=== PATIENT | male | born 1970 | race Hispanic/Latino ===

== ENCOUNTER 2018-02-02 08:38 | Observation (INO) | payer BC, OTHER ==
[2018-02-02] MEDS ORDERED: ASPIRIN 81 MG CHEWABLE TABLET ONE (09:07)
[2018-02-02 09:32] LABS: Absolute Lymphocytes (CBC) 1.3 K/uL (0.7-4.9); Absolute Monocytes 0.4 K/uL (0.1-1.3); Absolute Neutrophil 4.7 K/uL (1.8-8.0); Basophils % 0.4 % (0-1.3); Hematocrit 41.6 % (39.6-49.0); Lymphocytes % 19.8 % (15.3-44.8); MCH 30.5 pg (27.0-35.0); MCV 89.8 fL (80-100); MPV 8.5 fL (7.6-11.3); Monocytes % 5.9 % (3.3-12.3); RBC Red Blood Cell Count 4.63 M/uL (4.33-5.43)
[2018-02-02 09:42] LABS: Bicarbonate 24 mEq/L (21-31); Glucose Level 110 mg/dL (65-120); Potassium 3.4 mEq/L (3.6-5.0); Sodium Level 137 mEq/L (135-145)
[2018-02-02 09:48] LABS: ALT/SGPT 27 IU/L (10-60); AST/SGOT 26 IU/L (10-42); Albumin 4.3 g/dL (3.2-5.5); Alkaline Phosphatase 87 IU/L (42-121); BUN Blood Urea Nitrogen 16 mg/dL (6-20); Bilirubin Direct 0.1 mg/dL (0-0.2); Bilirubin Total 0.7 mg/dL (0.3-1.2); Creatine Phosphokinase 447 IU/L (22-269); Protein, Total 7.3 g/dL (6.0-8.3)
--- NOTE | 2018-02-02 09:50 | RAD REPORT ---
EXAM DESCRIPTION: [facility] Single View02/02/2018 9:21 am CLINICAL HISTORY: Chest pain COMPARISON: none FINDINGS: The patient is rotated limiting evaluation mediastinum. The lungs appear clear of acute infiltrate. The heart is normal size IMPRESSION: No acute abnormalities displayed
[2018-02-02 09:51] LABS: CKMB Creatine Kinase MB 3.8 ng/ml (0.3-4.0)
--- NOTE | 2018-02-02 11:14 | ER ---
Nurse's Notes [facility] Name: Noel Starr Age: 47 yrs Sex: Male : 1970 Arrival Date: 02/02/2018 Time: 08:42 Bed 7 Private MD: Ochoa Mccracken R Diagnosis: Chest pain, unspecified Presentation: 02/02 08:52 Presenting complaint: Patient states: was at work and started getting midsternal chest iw pain, was not doing strenuous work at time, occurred at 0800 every 5-10 minutes, non radiating, feels like pressure, also felt his head get numb, denies n/v, denies cardiac hx. Transition of care: patient was not received from another setting of care. Onset of symptoms was February 02, 2018. Initial Sepsis Screen: Does the patient meet any 2 criteria? No. Patient's initial sepsis screen is negative. Does the patient have a suspected source of infection? No. Patient's initial sepsis screen is negative. Care prior to arrival: None. 08:52 Method Of Arrival: Ambulatory iw 08:52 Acuity: MAR 3 iw Triage Assessment: 09:06 General: Appears in no apparent distress. Behavior is appropriate for age. Pain: tw2 Complains of pain in chest. EENT: No signs and/or symptoms were reported regarding the EENT system. Neuro: Level of Consciousness is awake, alert, obeys commands, Oriented to person, place, time, situation. Cardiovascular: Reports chest pain, "that comes and goes" Heart tones S1 S2 Capillary refill < 3 seconds Patient's skin is warm and dry. Respiratory: Airway is patent Respiratory effort is even, unlabored, Respiratory pattern is regular, symmetrical, Breath sounds are clear bilaterally. GI: No signs and/or symptoms were reported involving the gastrointestinal system. : No signs and/or symptoms were reported regarding the genitourinary system. Derm: Skin is intact, is healthy with good turgor, Skin is dry, Skin temperature is warm. Musculoskeletal: Range of motion: intact in all extremities. Historical: - Allergies: 08:54 NKA; iw - Home Meds: 08:54 meloxicam oral oral [Active]; Tylenol #3 Oral [Active]; iw - PMHx: 08:54 bursitis; Hypertension; iw - PSHx: 08:54 None; iw - Immunization history:: Adult Immunizations not up to date. - Social history:: Smoking status: Patient/guardian denies using tobacco. - Family history:: not pertinent. - Hospitalizations: : No recent hospitalization is reported. Screenin:05 Abuse screen: Denies threats or abuse. Nutritional screening: No deficits noted. tw2 Tuberculosis screening: No symptoms or risk factors identified. Fall Risk None identified. Assessment: 09:07 Pain: Pain does not radiate. Pain began suddenly. tw2 09:07 Reassessment: see triage assessment. tw2 10:00 Reassessment: Patient appears in no apparent distress at this time. No changes from tw2 previously documented assessment. Patient and/or family updated on plan of care and expected duration. Pain level reassessed. Patient is alert, oriented x 3, equal unlabored respirations, skin warm/dry/pink. 10:40 Reassessment: Patient appears in no apparent distress at this time. No changes from tw2 previously documented assessment. Patient and/or family updated on plan of care and expected duration. Pain level reassessed. Patient is alert, oriented x 3, equal unlabored respirations, skin warm/dry/pink. Vital Signs: 08:54 BP 150 / 96; Pulse 82; Resp 18; Temp 98.4(TE); Pulse Ox 98% on R/A; Weight 88.9 kg; iw Height 5 ft. 4 in. (162.56 cm); Pain 7/10; 09:04 BP 137 / 86; Pulse 79; Resp 18; Pulse Ox 98% on R/A; tw2 09:59 BP 187 / 66; Pulse 71; Resp 18; Pulse Ox 100% on R/A; tw2 10:39 BP 116 / 80; Pulse 65; Resp 17; Pulse Ox 99% on R/A; tw2 11:41 BP 125 / 76; Pulse 68; Resp 18; Pulse Ox 99% on R/A; tw2 08:54 Body Mass Index 33.64 (88.90 kg, 162.56 cm) iw ED Course: 08:42 Patient arrived in ED. mr 08:42 Ochoa Mccracken MD is Private Physician. mr 08:54 Triage completed. iw 08:54 Arm band placed on. iw 08:55 Jose F Champagne MD is Attending Physician. rn 09:03 Bullock, Saniya, RN is Primary Nurse. tw2 09:05 Bed in low position. Call light in reach. Adult w/ patient. awake overnight monitor on. Pulse tw2 ox on. NIBP on. 09:06 No provider procedures requiring assistance completed. Patient maintains SpO2 tw2 saturation greater than 95% on room air. 09:12 Inserted saline lock: 18 gauge in right antecubital area, using aseptic technique. hb Blood collected. 09:18 X-ray completed. Portable x-ray completed in exam room. Patient tolerated procedure sw well. 09:19 XRAY Chest (1 view) In Process Unspecified. EDMS 10:39 EKG done, by ED staff, reviewed by Jose F Champagne MD. [facility] 11:14 Ochoa Mccracken MD is Hospitalizing Provider. rn 11:59 Patient admitted, IV remains in place. tw2 Administered Medications: 09:15 Drug: Aspirin Chewable Tablet 324 mg Route: PO; hb 12:03 Follow up: Response: No adverse reaction tw2 Outcome: 11:14 Decision to Hospitalize by Provider. rn 11:59 Admitted to Med/surg accompanied by tech, via wheelchair, room 415, with chart, Report tw2 called to CONTRERAS Thomas 11:59 Condition: stable 11:59 Instructed on the need for admit. 12:24 Patient left the ED. tw2 Signatures: Dispatcher [employer] EDDC Jennifer Moreno Irene, RN Jose F Cloud MD MD rn Warren, Shannon sw Baxter, Heather, RN RN hb Wise, Tara, RN RN tw2 Martinez, Maria [facility]
--- NOTE | 2018-02-02 11:15 | EDPHYS ---
Physician Documentation [facility] Name: Noel Starr Age: 47 yrs Sex: Male : 1970 Arrival Date: 02/02/2018 Time: 08:42 Bed 7 Private MD: Ochoa Mccracken R ED Physician Jose F Champagne HPI: 02/02 09:26 This 47 yrs old Male presents to ER via Ambulatory with complaints of Chest rn Pain. 09:26 The patient or guardian reports chest pain that is located primarily in the substernal rn area. Onset: 1 hour(s) ago. The pain does not radiate. Associated signs and symptoms: The patient has no apparent associated signs or symptoms. The chest pain is described as a heaviness, a pressure. Duration: The patient or guardian reports multiple episodes, that are intermittent, the episodes last approximately 5 minute(s). Severity of pain: At its worst the pain was moderate in the emergency department the pain has improved. The patient has not experienced similar symptoms in the past. The patient has not recently seen a physician. Historical: - Allergies: 08:54 NKA; iw - Home Meds: 08:54 meloxicam oral oral [Active]; Tylenol #3 Oral [Active]; iw - PMHx: 08:54 bursitis; Hypertension; iw - PSHx: 08:54 None; iw - Immunization history:: Adult Immunizations not up to date. - Social history:: Smoking status: Patient/guardian denies using tobacco. - Family history:: not pertinent. - Hospitalizations: : No recent hospitalization is reported. ROS: 09:26 Constitutional: Negative for fever, chills, and weight loss, Eyes: Negative for injury, rn pain, redness, and discharge, Neck: Negative for injury, pain, and swelling, Cardiovascular: + chest pain Respiratory: Negative for shortness of breath, cough, wheezing, and pleuritic chest pain, Abdomen/GI: Negative for abdominal pain, nausea, vomiting, diarrhea, and constipation, Back: Negative for injury and pain, MS/Extremity: Negative for injury and deformity, Skin: Negative for injury, rash, and discoloration, Neuro: Negative for headache, weakness, numbness, tingling, and seizure. Exam: 09:26 Constitutional: This is a well developed, well nourished patient who is awake, alert, rn and in no acute distress. Head/Face: Normocephalic, atraumatic. Eyes: Pupils equal round and reactive to light, extra-ocular motions intact. Lids and lashes normal. Conjunctiva and sclera are non-icteric and not injected. Cornea within normal limits. Periorbital areas with no swelling, redness, or edema. Neck: Trachea midline, no thyromegaly or masses palpated, and no cervical lymphadenopathy. Supple, full range of motion without nuchal rigidity, or vertebral point tenderness. No Meningismus. Cardiovascular: Regular rate and rhythm with a normal S1 and S2. No gallops, murmurs, or rubs. Normal PMI, no JVD. No pulse deficits. Respiratory: Lungs have equal breath sounds bilaterally, clear to auscultation and percussion. No rales, rhonchi or wheezes noted. No increased work of breathing, no retractions or nasal flaring. Abdomen/GI: Soft, non-tender, with normal bowel sounds. No distension or tympany. No guarding or rebound. No evidence of tenderness throughout. MS/ Extremity: Pulses equal, no cyanosis. Neurovascular intact. Full, normal range of motion. Equal circumference. Neuro: Awake and alert, GCS 15, oriented to person, place, time, and situation. Cranial nerves II-XII grossly intact. Motor strength 5/5 in all extremities. Sensory grossly intact. Cerebellar exam normal. Normal gait. 10:37 ECG was reviewed by the Attending Physician. rn Vital Signs: 08:54 BP 150 / 96; Pulse 82; Resp 18; Temp 98.4(TE); Pulse Ox 98% on R/A; Weight 88.9 kg; iw Height 5 ft. 4 in. (162.56 cm); Pain 7/10; 09:04 BP 137 / 86; Pulse 79; Resp 18; Pulse Ox 98% on R/A; tw2 09:59 BP 187 / 66; Pulse 71; Resp 18; Pulse Ox 100% on R/A; tw2 10:39 BP 116 / 80; Pulse 65; Resp 17; Pulse Ox 99% on R/A; tw2 11:41 BP 125 / 76; Pulse 68; Resp 18; Pulse Ox 99% on R/A; tw2 08:54 Body Mass Index 33.64 (88.90 kg, 162.56 cm) iw MDM: 08:55 Patient medically screened. rn 11:13 Differential diagnosis: acute pericarditis, coronary artery disease chest wall pain, rn costochondritis, esophagitis, gastritis, gastroesophageal reflux disease (GERD), pleurisy, pneumothorax, stable angina. Data reviewed: vital signs, nurses notes, lab test result(s), EKG, radiologic studies, plain films, and as a result, I will discharge patient. Counseling: I had a detailed discussion with the patient and/or guardian regarding: the historical points, exam findings, and any diagnostic results supporting the discharge/admit diagnosis, lab results, radiology results, the need for outpatient follow up, to return to the emergency department if symptoms worsen or persist or if there are any questions or concerns that arise at home. Admission orders: after a detailed discussion of the patient's condition and case, the admit orders are written by me. Special discussion:. 02/02 09:03 Order name: Basic Metabolic Panel rn 02/02 09:03 Order name: BNP rn 02/02 09:03 Order name: CBC with Diff rn 02/02 09:03 Order name: Ckmb; Complete Time: 09:56 rn 02/02 09:03 Order name: CPK; Complete Time: 09:56 rn 02/02 09:03 Order name: LFT's; Complete Time: 09:56 rn 02/02 09:03 Order name: Troponin (emerg Dept Use Only); Complete Time: 09:56 rn 02/02 09:03 Order name: XRAY Chest (1 view); Complete Time: 09:56 rn 02/02 09:03 Order name: EKG; Complete Time: 09:04 rn 02/02 09:03 Order name: Cardiac monitoring; Complete Time: 09:15 rn 02/02 09:04 Order name: Basic Metabolic Panel; Complete Time: 09:56 EDMS 02/02 09:04 Order name: BNP B-Type Natriuretic Peptide; Complete Time: 10:37 EDMS 02/02 09:04 Order name: CBC with Automated Diff; Complete Time: 09:56 EDMS 02/02 09:03 Order name: EKG - Nurse/Tech; Complete Time: 09:04 rn 02/02 09:03 Order name: IV Saline Lock; Complete Time: 09:15 rn 02/02 09:03 Order name: Labs collected and sent; Complete Time: :15 rn 02/02 09:03 Order name: O2 Per Protocol; Complete Time: rn 02/02 09:03 Order name: O2 Sat Monitoring; Complete Time: : rn EC:37 Rate is 74 beats/min. Rhythm is regular. QRS [place] is Normal. FL interval is normal. QRS rn interval is normal. QT interval is normal. No Q waves. T waves are Normal. No ST changes noted. Clinical impression: Normal ECG. Interpreted by me. Administered Medications: : Drug: Aspirin Chewable Tablet 324 mg Route: PO; hb 12:03 Follow up: Response: No adverse reaction tw2 Disposition: 02/02/18 11:14 Hospitalization ordered by Ochoa Mccracken for Observation. Preliminary diagnosis is Chest pain, unspecified. - Bed requested for Telemetry/MedSurg (observation). - Status is Observation. tw2 - Condition is Stable. - Problem is new. - Symptoms have improved. UTI on Admission? No Signatures: Dispatcher [employer] EDMS Kayleen Green Irene, RN RN Jose F Champagne MD MD rn Baxter, Heather, RN RN Saniya Bullock RN RN tw2 Corrections: (The following items were deleted from the chart) 11:55 11:14 Hospitalization Ordered by Ochoa Mccracken MD for Observation. Preliminary diagnosis bd is Chest pain, unspecified. Bed requested for Telemetry/MedSurg (observation). Status is Observation. Condition is Stable. Problem is new. Symptoms have improved. UTI on Admission? No. rn 12:24 11:55 02/02/2018 11:14 Hospitalization Ordered by Ochoa Mccracken MD for Observation. tw2 Preliminary diagnosis is Chest pain, unspecified. Bed requested for Telemetry/MedSurg (observation). Status is Observation. Condition is Stable. Problem is new. Symptoms have improved. UTI on Admission? No. bd
[2018-02-02 13:16] VITALS: BMI 33.6
--- NOTE | 2018-02-02 13:28 | EKG ---
Test Date: 2018-02-02 Test Time: 09:05:05 Full Stack Net Developer: JAVIER MEASUREMENT RESULTS: Intervals: Rate: 74 NH: 154 QRSD: 78 QT: 378 QTc: 419 [place]: P: 44 NH: 154 QRS: 43 T: 34 INTERPRETIVE STATEMENTS: Normal sinus rhythm Normal ECG Compared to ECG 08/31/2001 10:48:00 No significant changes Electronically Signed On 02-02-18 13:27:26 CDT by Jose Howell
[2018-02-02] MEDS ORDERED: ACETAMINOPHEN 500 MG TAB PO PRN (14:08)
[2018-02-02] MEDS ORDERED: ONDANSETRON 4 MG/2 ML VIAL IV PRN (14:08)
[2018-02-03 04:25] LABS: Absolute Monocytes 0.5 K/uL (0.1-1.3); Absolute Neutrophil 3.3 K/uL (1.8-8.0); Basophils % 0.4 % (0-1.3); Eosinophils % 5.2 % (0-4.4); Lymphocytes % 32.3 % (15.3-44.8); MCH 30.2 pg (27.0-35.0); MCV 90.3 fL (80-100); MPV 8.5 fL (7.6-11.3); Monocytes % 7.6 % (3.3-12.3); RBC Red Blood Cell Count 4.54 M/uL (4.33-5.43)
[2018-02-03 04:35] LABS: BUN Blood Urea Nitrogen 21 mg/dL (6-20); Bicarbonate 26 mEq/L (21-31); Glucose Level 105 mg/dL (65-120); Potassium 3.5 mEq/L (3.6-5.0); Sodium Level 140 mEq/L (135-145)
[2018-02-03] MEDS ORDERED: ASPIRIN EC 81 MG TAB PO SCH (09:00)
--- NOTE | 2018-02-03 20:12 | HP ---
Date of Admission: 02/02/2018 Chief Complaint: Recurrent sternal chest pain. History Of Present Illness: A 47-year-old, obese male who was brought to the emergency room because of retrosternal chest pain. His troponin was normal. There were no changes on the EKG indicative of any ischemia or DC. The patient is admitted. There is no history of fever, chills, rigors, or shor tness of breath of breath. Past Medical History: The patient does not have prior history of coronary artery disease. He has hi story of bursitis and hypotension. Allergies: NONE. Home Medicines: Mobic. Review of Systems: No history of fever, chills, rigors. Physical Examination: General: A 47-year-old, obese male, comfortable at rest. HEENT: Negative. Neck: Supple. JVD negative. Chest: Clear. Heart: Regular. Abdomen: Soft. Extremities: No edema. Laboratory Data: Troponin normal. Assessment: Chest pain, retrosternal. Plan: Cardiology consultation, possible stress test. REJI/DEZ Voice ID: [id number]
[2018-02-04 04:49] VITALS: BP 148/64; TEMP 97.3
--- NOTE | 2018-02-04 07:50 | ECHO ---
HEIGHT: 5 ft 3 in WEIGHT: 196 lb 0 oz DATE OF STUDY: 02/03/[address]: Jay Mays MD 2-DIMENSIONAL: YES M.MODE: YES DOPPLER: YES COLOR FLOW: YES TDS: YES PORTABLE: NO DEFINITY: NO BUBBLE STUDY: NO DIAGNOSIS: CHEST PAIN CARDIAC HISTORY: CATHERIZATION: NO SURGERY: NO PROSTHETIC VALVE: NO PACEMAKER: NO MEASUREMENTS (cm) DIASTOLIC (NORMALS) SYSTOLIC (NORMALS) IVSd 1.1 (0.6-1.2) LA Diam 4.0 (1.9-4.0) LVEF 54% LVIDd 4.2 (3.5-5.7) LVIDs 3.0 (2.0-3.5) %FS 28% LVPWd 1.1 (0.6-1.2) Ao Diam 3.0 (2.0-3.7) 2 DIMENSIONAL ASSESSMENT: RIGHT ATRIUM: NORMAL LEFT ATRIUM: NORMAL RIGHT VENTRICLE: NORMAL LEFT VENTRICLE: NORMAL TRICUSPID VALVE: NORMAL MITRAL VALVE: NORMAL PULMONIC VALVE: NORMAL AORTIC VALVE: NORMAL PERICARDIAL EFFUSION: NONE AORTIC ROOT: NORMAL LEFT VENTRICULAR WALL MOTION: NORMAL DOPPLER/COLOR FLOW: MILD TRICUSPID REGURGITATION. NORMAL RIGHT VENTRICULAR SYSTOLIC PRESSURE. COMMENTS: NORMAL 2D ECHO. MILD TRICUSPID REGURGITATION. TECHNOLOGIST: KINZA HERZOG
--- NOTE | 2018-02-04 07:55 | TREADMILL ---
70% H.R.: 121 85% H.R.: 147 90% H.R.: 156 100% H.R.: 173 DX: CHEST PAIN Date of Study: KENIA DEVINE Ht: 5 3 Wt: 196 lb 0 oz Consulting Physician: ZAHEER MEDICATIONS: TYLENOL, ASPIRIN, ZOFRAN, MELOXICAM HISTORY: 47 YEAR OLD MALE WITH COMPLAINTS OF CHEST PAIN. HISTORY OF HYPERTENSION PHYSICIAL EXAMINATION: RESTING B.P.: 163/95 RESTING H.R.: 69 RESTING EKG: NORMAL PROTOCOL: BO ROUTINE EXERCISE TIME: 174/99 MAXIMUM HEART RATE: 162 % OF PREDICTED B.P. AT PEAK STRESS: 7:35 H.R. AT 1 MINUTE POST EXERCISE: 134 IMPRESSION: ROUTINE BO STOPPED DUE TO FATIGUE AND TARGET HEART RATE REACHED. NO CHEST PAIN, NO VENTRICULAR TACHYCARDIA, NO SUPRA VENTRICULAR TACHYCARDIA. NO SIGNIFICANT ST CHANGE WITH STRESS.
[2018-02-04 08:21] VITALS: O2SAT 95
--- NOTE | 2018-02-04 11:52 | CON ---
Date of Consultation: 02/03/2018 The patient was admitted on 02/02/2018. The patient was seen by me on 02/03/2018. Reason For Consultation: Chest pain. History Of Present Illness: Mr. Starr is a 47-year-old male, who has no significant past medical history or risk factors for heart disease, except for those in family history. Was at work, develope d severe crippling sharp chest pain that made him sit down. He was told by his superiors to go home and rest, but he came to the emergency room and en route had 2-3 episodes of similar sharp chest pain without any nausea, vomiting, diaphoresis, PND, orthopnea, pedal edema, palpitations, or syncope. T he symptoms were nonexertional, not related to food, body position in time of the day, and lasted abo ut a minute each. By the time I saw him, he had a normal EKG, normal chest x-ray, and normal troponi n. Past Medical History: Negative. Allergies: NONE. Review of Systems: Negative. Social History: Negative for tobacco or alcohol. Family History: Positive for heart disease. Physical Examination: Vital Signs: Stable. Afebrile. HEENT: Negative. Neck: Supple with no bruit. Chest: Clear. Cardiac: Revealed a regular rhythm and rate without any murmurs, gallops, or rubs. Abdomen: Benign. Extremities: Revealed no clubbing, cyanosis, or edema. Diagnostic Data: All normal. Impression And Plan: Mr. Starr is a young man with risk factors of age, gender, family history of heart disease, atypical symptoms, most likely secondary to pleurisy or musculoskeletal pain, but nev ertheless he is here and I think he deserves a workup to rule out coronary artery disease. I would o rder an echocardiogram and a routine stress test prior to his discharge. KATE/DEZ Voice ID: [id number] Report ID: [id number]
== END 2018-02-04 08:54 | disposition home or self-care (01) ==
LOC: ER 08:38 → ERHOLD 11:20 → 4TH 12:04
PROVIDERS: ADMIT Internal Medicine; ATTEND Internal Medicine
DX: R07.9 Chest pain, unspecified (principal); E66.9 Obesity, unspecified; Z68.34 Body mass index [BMI] 34.0-34.9, adult; Z82.49 Family history of ischemic heart disease and other diseases of the circulatory system
CPT/HCPCS: 36415; 71045; 80048; 80076; 82550; 82553; 83880; 84484; 85025; 93005; 93017; 93306; 99285; G0378